=== PATIENT | female | born 1945 | race Caucasian/White ===

== ENCOUNTER → 2019-06-18 | Outpatient (CLI) | payer MEDICARE ==
[~2019-06-18] MED LIST: VICODIN 5/500 505 MG PO
[2019-06-18 11:44] LABS: ALBUMIN 3.4 gm/dl (3.1-4.5); TOTAL PROTEIN 7.2 gm/dL (6.4-8.2)
[2019-06-18 11:45] LABS: BILIRUBIN, DIRECT 0.1 mg/dL (0.0-0.2)
== END | disposition home or self-care (01) ==
LOC: LAB 10:47
PROVIDERS: Internal Medicine
DX: E87.2 Acidosis (principal)

== ENCOUNTER → 2020-01-13 | Outpatient (CLI) | payer MEDICARE ==
[2020-01-13 10:33] LABS: BASO # 0.1 10*3/uL (0.0-0.1); BASO % 1.1 % (0.0-1.0); EOS # 0.2 10*3/uL (0.0-0.4); EOS % 2.8 % (1.0-4.0); HEMATOCRIT 39.9 % (37.0-47.0); LYMPH # 2.4 10*3/uL (1.3-4.4); LYMPH % 36.8 % (27.0-41.0); MEAN CELL VOLUME 92.1 fl (81.0-99.0); MEAN CORPUSCULAR HGB 31.2 pg (27.0-31.0); MEAN CORPUSCULAR HGB CONC 33.8 g/dl (33.0-37.0); MONO # 0.5 10*3/uL (0.1-1.0); NEUT # 3.3 10*3/uL (2.3-7.9); PLATELET COUNT AUTOMATED 253 10*3/uL (130-400); RED BLOOD COUNT 4.33 10*6/uL (4.10-5.10); RED CELL DISTRI WIDTH 12.9 % (0-14.5); WHITE BLOOD COUNT 6.5 10*3/uL (4.8-10.8)
[2020-01-13 11:03] LABS: ALBUMIN 3.6 gm/dl (3.1-4.5); ALKALINE PHOSPHATASE 63 U/L (45-117); BILIRUBIN, DIRECT 0.1 mg/dL (0.0-0.2); BUN 11 mg/dl (7-24); CHLORIDE 102 mmol/L (98-107); CHOLESTEROL 221 mg/dL (<200); CREATININE 0.82 mg/dL (0.55-1.02); HDL CHOLESTEROL 55 mg/dl (40-60); LDL CHOLESTEROL 114 mg/dL (9-159); POTASSIUM 4.1 mmol/L (3.5-5.1); SGOT/AST 16 IU/L (3-35); SGPT/ALT 30 U/L (12-78); SODIUM 135 mmol/L (136-145); TOTAL PROTEIN 7.4 gm/dL (6.4-8.2); TRIGLYCERIDES 258 mg/dl (<150); VLDL CHOLESTEROL 52 mg/dL (6-40)
== END | disposition home or self-care (01) ==
LOC: LAB 09:58
PROVIDERS: Internal Medicine
DX: E78.2 Mixed hyperlipidemia (principal); I10 Essential (primary) hypertension

== ENCOUNTER → 2020-06-14 | Outpatient (CLI) | payer MEDICARE ==
[2020-06-14 11:01] LABS: BASO # 0.1 10*3/uL (0.0-0.1); BASO % 0.9 % (0.0-1.0); EOS # 0.2 10*3/uL (0.0-0.4); EOS % 2.8 % (1.0-4.0); HEMATOCRIT 40.4 % (37.0-47.0); LYMPH # 2.3 10*3/uL (1.3-4.4); LYMPH % 42.6 % (27.0-41.0); MEAN CELL VOLUME 94.2 fl (81.0-99.0); MEAN CORPUSCULAR HGB 30.8 pg (27.0-31.0); MEAN CORPUSCULAR HGB CONC 32.7 g/dl (33.0-37.0); MEAN PLATELET VOLUME 11.2 fl (9.6-12.3); MONO # 0.5 10*3/uL (0.1-1.0); MONO % 8.8 % (3.0-9.0); NEUT # 2.4 10*3/uL (2.3-7.9); NEUT % 44.7 % (47.0-73.0); PLATELET COUNT AUTOMATED 278 10*3/uL (130-400); RED BLOOD COUNT 4.29 10*6/uL (4.10-5.10); RED CELL DISTRI WIDTH 12.9 % (0-14.5); WHITE BLOOD COUNT 5.4 10*3/uL (4.8-10.8)
[2020-06-14 11:34] LABS: ALBUMIN 3.4 gm/dl (3.1-4.5); ALKALINE PHOSPHATASE 58 U/L (45-117); BILIRUBIN, DIRECT < 0.1 mg/dL (0.0-0.2); BUN 15 mg/dl (7-24); CHLORIDE 105 mmol/L (98-107); CHOLESTEROL 211 mg/dL (<200); CREATININE 0.87 mg/dL (0.55-1.02); HDL CHOLESTEROL 55 mg/dl (40-60); LDL CHOLESTEROL 113 mg/dL (9-159); POTASSIUM 4.1 mmol/L (3.5-5.1); SGOT/AST 18 IU/L (3-35); SGPT/ALT 23 U/L (12-78); SODIUM 138 mmol/L (136-145); TOTAL PROTEIN 7.5 gm/dL (6.4-8.2); TRIGLYCERIDES 215 mg/dl (<150); VLDL CHOLESTEROL 43 mg/dL (6-40)
== END | disposition home or self-care (01) ==
LOC: LAB 10:26
PROVIDERS: ATTEND Internal Medicine
DX: I10 Essential (primary) hypertension (principal); E78.2 Mixed hyperlipidemia

== ENCOUNTER → 2020-12-26 | Outpatient (CLI) | payer MEDICARE, OTHER | END | disposition home or self-care (01) | LOC: LAB 10:21 | PROVIDERS: ATTEND Internal Medicine | DX: E78.2 Mixed hyperlipidemia (principal); I10 Essential (primary) hypertension ==

== ENCOUNTER → 2021-06-14 | Outpatient (CLI) | payer MEDICARE, OTHER ==
[2021-06-14 09:47] LABS: ALBUMIN 3.3 gm/dl (3.1-4.5); CHLORIDE 104 mmol/L (98-107); POTASSIUM 4.2 mmol/L (3.5-5.1); SODIUM 139 mmol/L (136-145)
[2021-06-14 09:55] LABS: ALKALINE PHOSPHATASE 61 U/L (45-117); BUN 14 mg/dl (7-24); CHOLESTEROL 193 mg/dL (<200); CREATININE 0.88 mg/dL (0.55-1.02); LDL CHOLESTEROL 104 mg/dL (9-159); SGOT/AST 16 IU/L (3-35); SGPT/ALT 22 U/L (12-78); TOTAL PROTEIN 7.5 gm/dL (6.4-8.2); TRIGLYCERIDES 175 mg/dl (<150)
== END | disposition home or self-care (01) ==
LOC: LAB 09:05
PROVIDERS: ATTEND Internal Medicine
DX: I10 Essential (primary) hypertension (principal); E78.2 Mixed hyperlipidemia

== ENCOUNTER → 2021-12-12 | Outpatient (CLI) | payer MEDICARE, OTHER ==
[2021-12-12 11:43] LABS: BUN 12 mg/dl (7-24); CHLORIDE 106 mmol/L (98-107); POTASSIUM 4.2 mmol/L (3.5-5.1); SODIUM 138 mmol/L (136-145)
[2021-12-12 11:49] LABS: ALKALINE PHOSPHATASE 65 U/L (45-117); CHOLESTEROL 208 mg/dL (<200); CREATININE 0.79 mg/dL (0.55-1.02); LDL CHOLESTEROL 112 mg/dL (9-159); SGOT/AST 17 IU/L (3-35); SGPT/ALT 24 U/L (12-78); TOTAL PROTEIN 7.2 gm/dL (6.4-8.2); TRIGLYCERIDES 156 mg/dl (<150)
== END | disposition home or self-care (01) ==
LOC: LAB 11:02
PROVIDERS: ATTEND Internal Medicine
DX: I10 Essential (primary) hypertension (principal); E78.2 Mixed hyperlipidemia

== ENCOUNTER → 2022-06-13 | Outpatient (CLI) | payer MEDICARE, OTHER ==
[2022-06-13 10:03] LABS: BASO # 0.1 10*3/uL (0.0-0.1); BASO % 0.9 % (0.0-1.0); EOS # 0.2 10*3/uL (0.0-0.4); EOS % 3.8 % (1.0-4.0); HEMATOCRIT 38.2 % (37.0-47.0); LYMPH # 1.6 10*3/uL (1.3-4.4); LYMPH % 29.7 % (27.0-41.0); MEAN CELL VOLUME 93.9 fl (81.0-99.0); MEAN CORPUSCULAR HGB 31.7 pg (27.0-31.0); MEAN CORPUSCULAR HGB CONC 33.8 g/dl (33.0-37.0); MEAN PLATELET VOLUME 10.4 fl (9.6-12.3); MONO # 0.8 10*3/uL (0.1-1.0); MONO % 14.8 % (3.0-9.0); NEUT # 2.7 10*3/uL (2.3-7.9); NEUT % 50.6 % (47.0-73.0); PLATELET COUNT AUTOMATED 279 10*3/uL (130-400); RED BLOOD COUNT 4.07 10*6/uL (4.10-5.10); RED CELL DISTRI WIDTH 13.1 % (0-14.5); WHITE BLOOD COUNT 5.3 10*3/uL (4.8-10.8)
[2022-06-13 10:21] LABS: ALKALINE PHOSPHATASE 68 U/L (45-117); BUN 13 mg/dl (7-24); CHLORIDE 105 mmol/L (98-107); CHOLESTEROL 179 mg/dL (<200); CREATININE 0.83 mg/dL (0.55-1.02); LDL CHOLESTEROL 89 mg/dL (9-159); SGOT/AST 16 IU/L (3-35); SGPT/ALT 21 U/L (12-78); SODIUM 138 mmol/L (136-145); TOTAL PROTEIN 7.5 gm/dL (6.4-8.2); TRIGLYCERIDES 162 mg/dl (<150)
[2022-06-13 11:05] LABS: VITAMIN D, 25-HYDROXY 33.9 ng/mL (30-100)
== END | disposition home or self-care (01) ==
LOC: LAB 09:43
PROVIDERS: ATTEND Internal Medicine
DX: I10 Essential (primary) hypertension (principal); E78.2 Mixed hyperlipidemia

== ENCOUNTER → 2022-12-11 | Outpatient (CLI) | payer MEDICARE, OTHER ==
[2022-12-11 12:09] LABS: BASO # 0.1 10*3/uL (0.0-0.1); BASO % 1.1 % (0.0-1.0); EOS # 0.2 10*3/uL (0.0-0.4); EOS % 2.7 % (1.0-4.0); HEMATOCRIT 40.4 % (37.0-47.0); LYMPH # 1.9 10*3/uL (1.3-4.4); LYMPH % 33.8 % (27.0-41.0); MEAN CELL VOLUME 93.7 fl (81.0-99.0); MEAN CORPUSCULAR HGB 30.6 pg (27.0-31.0); MEAN CORPUSCULAR HGB CONC 32.7 g/dl (33.0-37.0); MEAN PLATELET VOLUME 10.6 fl (9.6-12.3); MONO # 0.5 10*3/uL (0.1-1.0); MONO % 9.4 % (3.0-9.0); NEUT # 2.9 10*3/uL (2.3-7.9); NEUT % 52.6 % (47.0-73.0); PLATELET COUNT AUTOMATED 248 10*3/uL (130-400); RED BLOOD COUNT 4.31 10*6/uL (4.10-5.10); RED CELL DISTRI WIDTH 12.9 % (0-14.5); WHITE BLOOD COUNT 5.5 10*3/uL (4.8-10.8)
[2022-12-11 12:41] LABS: ALKALINE PHOSPHATASE 67 U/L (46-116); BUN 12 mg/dl (9-23); CHLORIDE 101 mmol/L (98-107); CHOLESTEROL 184 mg/dL (<200); LDL CHOLESTEROL 98 mg/dL (9-159); SGPT/ALT 11 U/L (10-49); THYROID STIM HORMONE (HS) 1.133 uIU/ml (0.550-4.780); TRIGLYCERIDES 147 mg/dl (<150)
== END | disposition home or self-care (01) ==
LOC: LAB 11:47
PROVIDERS: ATTEND Internal Medicine
DX: I10 Essential (primary) hypertension (principal); E78.2 Mixed hyperlipidemia

== ENCOUNTER → 2023-06-11 | Outpatient (CLI) | payer MEDICARE, OTHER ==
[2023-06-11 10:56] LABS: BASO # 0.1 10*3/uL (0.0-0.1); EOS # 0.2 10*3/uL (0.0-0.4); EOS % 3.4 % (1.0-4.0); HEMATOCRIT 37.6 % (37.0-47.0); LYMPH # 1.8 10*3/uL (1.3-4.4); LYMPH % 35.6 % (27.0-41.0); MEAN CELL VOLUME 92.4 fl (81.0-99.0); MEAN CORPUSCULAR HGB 31.9 pg (27.0-31.0); MEAN CORPUSCULAR HGB CONC 34.6 g/dl (33.0-37.0); MEAN PLATELET VOLUME 10.8 fl (9.6-12.3); MONO # 0.6 10*3/uL (0.1-1.0); MONO % 10.9 % (3.0-9.0); NEUT # 2.5 10*3/uL (2.3-7.9); NEUT % 48.9 % (47.0-73.0); PLATELET COUNT AUTOMATED 251 10*3/uL (130-400); RED BLOOD COUNT 4.07 10*6/uL (4.10-5.10); RED CELL DISTRI WIDTH 12.9 % (0-14.5); WHITE BLOOD COUNT 5.1 10*3/uL (4.8-10.8)
[2023-06-11 11:24] LABS: ALKALINE PHOSPHATASE 62 U/L (46-116); BUN 11 mg/dl (9-23); CHLORIDE 100 mmol/L (98-107); CHOLESTEROL 169 mg/dL (<200); FREE T4 1.16 ng/dl (0.89-1.76); LDL CHOLESTEROL 89 mg/dL (9-159); SGPT/ALT 14 U/L (10-49); TOTAL PROTEIN 6.9 gm/dL (6.0-8.0); TRIGLYCERIDES 134 mg/dl (<150)
== END | disposition home or self-care (01) ==
LOC: LAB 10:10
PROVIDERS: ATTEND Internal Medicine
DX: E78.2 Mixed hyperlipidemia (principal); I10 Essential (primary) hypertension; E78.5 Hyperlipidemia, unspecified

== ENCOUNTER → 2023-12-10 | Outpatient (CLI) | payer MEDICARE, OTHER ==
[2023-12-10 10:54] LABS: BASO # 0.1 10*3/uL (0.0-0.1); BASO % 0.9 % (0.0-1.0); EOS # 0.2 10*3/uL (0.0-0.4); LYMPH # 2.1 10*3/uL (1.3-4.4); LYMPH % 36.5 % (27.0-41.0); MEAN CELL VOLUME 93.9 fl (81.0-99.0); MEAN CORPUSCULAR HGB 30.5 pg (27.0-31.0); MEAN CORPUSCULAR HGB CONC 32.5 g/dl (33.0-37.0); MEAN PLATELET VOLUME 10.9 fl (9.6-12.3); MONO # 0.7 10*3/uL (0.1-1.0); MONO % 11.6 % (3.0-9.0); NEUT # 2.7 10*3/uL (2.3-7.9); NEUT % 46.6 % (47.0-73.0); PLATELET COUNT AUTOMATED 273 10*3/uL (130-400); RED BLOOD COUNT 4.26 10*6/uL (4.10-5.10); RED CELL DISTRI WIDTH 13.2 % (0-14.5); WHITE BLOOD COUNT 5.7 10*3/uL (4.8-10.8)
[2023-12-10 11:42] LABS: ALKALINE PHOSPHATASE 60 U/L (46-116); BUN 11 mg/dl (9-23); CHLORIDE 101 mmol/L (98-107); CHOLESTEROL 187 mg/dL (<200); FREE T4 1.22 ng/dl (0.89-1.76); LDL CHOLESTEROL 101 mg/dL (9-159); SGPT/ALT 10 U/L (5-49); TOTAL PROTEIN 7.2 gm/dL (6.0-8.0); TRIGLYCERIDES 130 mg/dl (<150)
== END | disposition home or self-care (01) ==
LOC: LAB 10:11
PROVIDERS: ATTEND Internal Medicine
DX: I10 Essential (primary) hypertension (principal); E78.2 Mixed hyperlipidemia; E78.5 Hyperlipidemia, unspecified

== ENCOUNTER → 2024-06-16 | Outpatient (CLI) | payer MEDICARE, OTHER ==
[2024-06-16 10:35] LABS: BASO # 0.1 10*3/uL (0.0-0.1); BASO % 0.7 % (0.0-1.0); EOS # 0.2 10*3/uL (0.0-0.4); EOS % 2.2 % (1.0-4.0); HEMATOCRIT 38.9 % (37.0-47.0); LYMPH # 2.1 10*3/uL (1.3-4.4); LYMPH % 28.7 % (27.0-41.0); MEAN CELL VOLUME 93.3 fl (81.0-99.0); MEAN CORPUSCULAR HGB 30.9 pg (27.0-31.0); MEAN CORPUSCULAR HGB CONC 33.2 g/dl (33.0-37.0); MEAN PLATELET VOLUME 10.2 fl (9.6-12.3); MONO # 0.6 10*3/uL (0.1-1.0); MONO % 8.1 % (3.0-9.0); NEUT # 4.4 10*3/uL (2.3-7.9); PLATELET COUNT AUTOMATED 311 10*3/uL (130-400); RED BLOOD COUNT 4.17 10*6/uL (4.10-5.10); RED CELL DISTRI WIDTH 12.8 % (0-14.5); WHITE BLOOD COUNT 7.3 10*3/uL (4.8-10.8)
[2024-06-16 11:18] LABS: ALKALINE PHOSPHATASE 63 U/L (46-116); BUN 12 mg/dl (9-23); CHLORIDE 100 mmol/L (98-107); CHOLESTEROL 169 mg/dL (<200); LDL CHOLESTEROL 82 mg/dL (9-159); POTASSIUM 4.1 mmol/L (3.4-5.1); SGPT/ALT 15 U/L (5-49); TOTAL PROTEIN 7.2 gm/dL (6.0-8.0); TRIGLYCERIDES 164 mg/dl (<150)
== END | disposition home or self-care (01) ==
LOC: LAB 10:09
PROVIDERS: ATTEND Internal Medicine
DX: I10 Essential (primary) hypertension (principal); E78.2 Mixed hyperlipidemia; R20.2 Paresthesia of skin